=== PATIENT | male | born 1950 | race Two or more races ===

== ENCOUNTER 2017-11-08 22:50 | Emergency (ER) | payer BC, MEDICARE ==
[~2017-11-08] VITALS: Ht 170.2 cm; Wt 77.1 kg
[2017-11-08] MEDS ORDERED: HYDROmorphone 1mg/ml Carpuject IVP ONE (23:15)
--- NOTE | 2017-11-08 23:45 | Emergency Room Report ---
History of Present Illness General Chief Complaint: Upper Extremity Injury Source: Patient, EMS Present Illness HPI Is a 67-year-old male who is right-hand dominant. He presents with chief complaint of a fall and shoulder pain. He said he went to the bathroom and slipped and fell. He sustained a laceration to his left finger. Also complaining of left shoulder pain. Can't move the shoulder. Occurred just prior to arrival. No loss of consciousness. No nausea no vomiting. No other complaint. Worse with movement. Pain is 10 out of 10 Allergies: Coded Allergies: No Known Allergies (Unverified , 11/08/17) Patient History Past Medical History: see triage record, old chart reviewed Past Surgical History: other Pertinent Family History: none Social History: Denies: smoking Immunizations: other Reviewed Nursing Documentation: PMH: Agreed, PSxH: Agreed Nursing Documentation-PMH Past Medical History: No History, Except For Hx Hypertension: Yes Review of Systems Eye: Denies: eye pain, blurred vision ENT: Denies: ear pain, nose congestion, throat swelling Respiratory: Denies: cough, shortness of breath Cardiovascular: Denies: chest pain, palpitations Gastrointestinal: Denies: abdominal pain, diarrhea, nausea, vomiting Musculoskeletal: Reports: joint pain, Denies: back pain Skin: Denies: rash Neurological: Denies: headache, numbness Endocrine: Denies: increased thirst, increased urine Hematologic/Lymphatic: Denies: easy bruising All Other Systems: negative except mentioned in HPI Physical Exam Vital Signs Date Time Temp Pulse Resp B/P (MAP) Pulse Ox O2 Delivery O2 Flow Rate FiO2 11/08/17 22:45 98.1 84 20 138/96 98 Room Air vitals normal Sp02 EP Interpretation: reviewed, normal General Appearance: well appearing, no apparent distress, alert Head: normocephalic, atraumatic Eyes: bilateral eye PERRL, bilateral eye EOMI ENT: hearing grossly normal, normal pharynx Neck: full range of motion, supple, no meningismus Respiratory: chest non-tender, lungs clear, normal breath sounds Cardiovascular #1: regular rate, rhythm, no murmur Gastrointestinal: normal bowel sounds, non tender, no mass, no organomegaly, no bruit, non-distended Musculoskeletal: back normal, other - Text Psychiatric: mood/affect normal Skin: warm/dry Procedures Splinting Splinting : Consent: Verbal Location: Left shoulder Pre-Made Type: Shoulder immobilizer Pre-Proc Neuro Vasc Exam: normal Post-Proc Neuro Vasc Exam: normal Patient Tolerated: Well Complications: None Joint Reduction Joint Reduction : Consent: Verbal Joint Reduction Site: shoulder (L) Procedural Sedation: No Reduction Attempts: One Pre-Procedure NV Exam: Yes Post-Procedure NV Exam: Yes Post Joint Reduction Film: joint reduced Patient Tolerated: Well Complications: None Progress Patient was given pain medication prior to reduction. I also did an intra- articular block with 10 mL of 1% lidocaine without epinephrine. With slow external rotation of the wrist with elbow by the torso, I was able to reduce the shoulder without difficulty. No complication. Patient tolerated procedure without a problem. Medical Decision Making Diagnostic Impression: Primary Impression: Closed dislocation of left shoulder Qualified Codes: S43.005A - Unspecified dislocation of left shoulder joint, initial encounter Additional Impression: Finger laceration Qualified Codes: S61.213A - Laceration without foreign body of left middle finger without damage to nail, initial encounter ER Course This patient present with a fall and dislocation of his left shoulder. Reduced without a problem. No nerve damage. We'll discharge home. Other X-Ray Diagnostic Results Other X-Ray Diagnostic Results #1: X-Ray ordered: Left shoulder # of Views/Limited Vs Complete: 3 View Indication: Pain EP Interpretation: Yes Interpretation: no soft tissue swelling, no fractures, other - Anterior dislocation Impression: Other - anterior shoulder dislocation Electronically Signed by: Elton Lynn MD Other X-Ray Diagnostic Results #2: X-Ray ordered: left shoulder # of Views/Limited Vs Complete: 2 View Indication: Pain EP Interpretation: Yes Interpretation: no dislocation, no soft tissue swelling, no fractures Impression: No acute disease - successful reduction. old clavicle frx. Electronically Signed by: Elton Lynn MD Last Vital Signs Date Time Temp Pulse Resp B/P (MAP) Pulse Ox O2 Delivery O2 Flow Rate FiO2 11/08/17 22:45 98.1 84 20 138/96 98 Room Air Status: improved Disposition: HOME, SELF-CARE Condition: Stable Scripts Ibuprofen* (MOTRIN*) 600 Mg Tablet 600 MG ORAL Q8H Y for For Pain, #30 TAB 0 Refills Prov: ELTON LYNN M.D. 11/09/17 Hydrocodone/Acetaminophen 5-325* (HYDROCODONE/ACETAMINOPHEN 5-325*) 1 Each Tablet 1 TAB ORAL Q6H Y for For Pain, #15 TAB 0 Refills Prov: ELTON LYNN M.D. 11/09/17 Additional Instructions: Followup with your Dr. in 7 days. Return if symptom worsen. ELTON LYNN M.D. Nov 08, 2017 23:45
[2017-11-08 23:51] VITALS: BP 143/104
[2017-11-09] MEDS ORDERED: HYDROCODON-ACE1 EA15 ORAL (00:41)
[2017-11-09] MEDS ORDERED: IBUPROFEN600 MG ORAL (00:41)
[2017-11-09 00:43] VITALS: BP 137/91
[2017-11-09 00:50] VITALS: BP 137/91
--- NOTE | 2017-11-09 13:16 | Diagnostic Imaging Report ---
Indication: Pain status post fall Technique: XRAY Shoulder Compl L Comparison: None Findings: There is abnormal inferior and medial displacement of the humeral head compatible with an anterior shoulder dislocation. There is a remote fracture deformity of the midshaft of the left clavicle with bridging callus. There is degenerative change at the AC joint. No acute fracture identified. Heart appears mildly enlarged. Left lung is clear. Impression: Anterior shoulder dislocation. Correct interpretation by the treating ER physician documented in the electronic medical record.
--- NOTE | 2017-11-09 13:17 | Diagnostic Imaging Report ---
Indication: Pain status post reduction. Technique: XRAY Shoulder Compl L Comparison: None Findings: Interval reduction of previously seen anterior shoulder dislocation. No acute fracture. Unchanged, fracture deformity of the midshaft of the left clavicle. Mild degenerative change again seen at the acromioclavicular joint. Impression: Successful reduction of previously seen anterior shoulder dislocation. No acute fracture.
== END 2017-11-09 00:50 | disposition home or self-care (01) ==
LOC: EDBD 22:50 → EMR 23:30
DX: S43.015A Anterior dislocation of left humerus, initial encounter (principal); S61.213A Laceration without foreign body of left middle finger without damage to nail, initial encounter; W01.0XXA Fall on same level from slipping, tripping and stumbling without subsequent striking against object, initial encounter; Y92.002 Bathroom of unspecified non-institutional (private) residence as the place of occurrence of the external cause; I10 Essential (primary) hypertension
CPT/HCPCS: 23655; 73030; 96374; 96375; 99284; J1170; J2405; 29240